=== PATIENT | male | born 1975 | race Caucasian/White ===

== ENCOUNTER 2019-05-10 11:30 | Day surgery (SDC) | payer OTHER ==
[2019-05-08 11:18] VITALS: BMI 31.6
[2019-05-10] MEDS ORDERED: MIDAZOLAM HCL 2 MG/2 ML SINGLE DOSE VIAL ONE (14:31)
[2019-05-10] MEDS ORDERED: PROPOFOL 20 ML ONE (14:32)
[2019-05-10] MEDS ORDERED: ONDANSETRON 4 MG/2 ML VIAL ONE (14:42)
[2019-05-10] MEDS ORDERED: DEXAMETHASONE SOD PHOSPHATE 4 MG/1 ML VIAL ONE (14:42)
[2019-05-10] MEDS ORDERED: LIDOCAINE HCL 2% (50ML VIAL) INF ONE (14:49)
[2019-05-10 15:26] VITALS: TEMP 98.2
[2019-05-10 15:50] VITALS: BP 120/72; PULSE 69
--- NOTE | 2019-05-15 09:39 | OP ---
DATE OF OPERATION: 05/10/2019 PREOPERATIVE DIAGNOSIS: carpal tunnel syndrome. POSTOPERATIVE DIAGNOSIS: carpal tunnel syndrome. OPERATIVE PROCEDURE: carpal tunnel release. ANESTHESIA: Local with sedation. COMPLICATIONS: None. ESTIMATED BLOOD LOSS: Minimal. INDICATION FOR PROCEDURE: The patient is a 43-year-old male with the above finding, indicated for operative treatment. Risks, benefits, and alternatives were discussed with patient at length. Proper informed consent was obtained. PROCEDURE: After proper identification of patient and correct operative site, patient was brought to the operating room and placed supine on the operative table. Prominences were well padded. Sedation and local anesthesia were given. upper extremity was prepped and draped in usual sterile fashion. Well-padded tourniquet was placed as well as a sterile prep. Esmarch bandage was used to exsanguinate the upper extremity. Tourniquet was inflated to 250 mmHg. Longitudinal incision was made in the proximal aspect of the palm. Incision was taken sharply through the skin, with blunt and sharp dissection through the subcutaneous tissues. Palmar fascia was divided longitudinally. Transcarpal ligament was divided longitudinally along with the distal 4 cm of the antebrachial fascia under direct visualization with loupe magnification. This provided complete release of the median nerve at the wrist. Wound was irrigated and repaired with 5-0 fast-absorbing, plain-gut suture. Sterile dressings were applied. Patient was reversed from anesthesia and brought to recovery room in stable condition. He tolerated the procedure well. Jose Enrique [id number]
== END 2019-05-10 15:51 | disposition home or self-care (01) ==
LOC: FASU 11:30
PROVIDERS: ATTEND Orthopaedic Surgery Hand Surgery
PROC: 01N50ZZ Release Median Nerve, Open Approach (ICD-10-PCS; principal; 2019-05-10 14:54)
DX: G56.02 Carpal tunnel syndrome, left upper limb (principal)

== ENCOUNTER 2019-05-24 12:23 | Day surgery (SDC) | payer OTHER ==
[2019-05-17 12:56] VITALS: BMI 31.6
[2019-05-24] MEDS ORDERED: MIDAZOLAM HCL 2 MG/2 ML SINGLE DOSE VIAL ONE (15:28)
[2019-05-24] MEDS ORDERED: PROPOFOL 20 ML ONE (15:28)
[2019-05-24 16:42] VITALS: TEMP 98.4
[2019-05-24 16:45] VITALS: BP 123/76; PULSE 66
--- NOTE | 2019-05-30 13:27 | OP ---
DATE OF OPERATION: 05/24/2019 PREOPERATIVE DIAGNOSIS: Right carpal tunnel syndrome. POSTOPERATIVE DIAGNOSIS: Right carpal tunnel syndrome. OPERATIVE PROCEDURE: Right carpal tunnel release. ANESTHESIA: Local with sedation. COMPLICATIONS: None. ESTIMATED BLOOD LOSS: Minimal. INDICATIONS FOR PROCEDURE: The patient is a 43-year-old male with the above finding, indicated for operative treatment. Risks, benefits, and alternatives were discussed with the patient at length. Proper informed consent was obtained. PROCEDURE: After proper identification of patient and correct operative site, patient brought to the operating room and placed supine on the operating room table. All bony prominences were well padded. Local anesthesia with sedation was given. The right upper extremity was prepped and draped in the usual sterile fashion. A well-padded tourniquet was placed over a sterile prep. Esmarch bandage used to exsanguinate the right upper extremity. Tourniquet was inflated to 250 mmHg. A longitudinal incision was made over the proximal aspect of the palm. Incision was taken sharply through skin with blunt and sharp dissection through the subcutaneous tissues. Palmar fascia was divided longitudinally. Transverse carpal ligament was divided longitudinally along with the distal 4 cm of antebrachial fascia under direct visualization with loupe magnification. This provided complete release of the median nerve at the wrist. The wound was irrigated with saline and repaired with 5-0 fast-absorbing plain gut suture. Sterile dressings were applied. Patient brought to the recovery room in stable condition. He tolerated procedure well. DANY SANCHEZ M.D. [id number]
== END 2019-05-24 16:50 | disposition home or self-care (01) ==
LOC: FASU 12:23
PROVIDERS: ATTEND Orthopaedic Surgery Hand Surgery
PROC: 01N50ZZ Release Median Nerve, Open Approach (ICD-10-PCS; principal; 2019-05-24 15:41)
DX: G56.01 Carpal tunnel syndrome, right upper limb (principal)